=== PATIENT | male | born 1965 | race African-American/Black ===

== ENCOUNTER → 2017-05-26 | Outpatient (CLI) | payer MEDICARE, OTHER ==
[~2017-05-26] MED LIST: ATEN25TA PO; HYDR12.54 PO; METF500T4 PO
== END | disposition home or self-care (01) ==
LOC: RADMN 11:55
PROVIDERS: ATTEND Specialist
DX: M50.33 Other cervical disc degeneration, cervicothoracic region (principal); M50.323 Other cervical disc degeneration at C6-C7 level; M46.02 Spinal enthesopathy, cervical region; M47.814 Spondylosis without myelopathy or radiculopathy, thoracic region; M46.04 Spinal enthesopathy, thoracic region; I70.0 Atherosclerosis of aorta
CPT/HCPCS: 72125; 72128; 72131

== ENCOUNTER 2019-11-15 07:25 | Emergency (ER) | payer MEDICARE, OTHER ==
[~2019-11-15] VITALS: Ht 177.8 cm; Wt 97.7 kg
[~2019-11-15 07:25] MED LIST changes: +METF-444 PO; -METF500T4 PO
[2019-11-15] MEDS ORDERED: BISMUTH SUBSALICYLATE 524 MG/30 ML SUSPENSION UDCUP PO ONE (07:45)
[2019-11-15 08:55] VITALS: BP 148/78
== END 2019-11-15 09:48 | disposition left against medical advice (07) ==
LOC: EMS 07:30
DX: R19.7 Diarrhea, unspecified (principal); R50.9 Fever, unspecified; E11.9 Type 2 diabetes mellitus without complications; I10 Essential (primary) hypertension; F17.210 Nicotine dependence, cigarettes, uncomplicated